=== PATIENT | female | born 1975 | race Caucasian/White ===

== ENCOUNTER 2019-03-15 15:37 | Emergency (ER) | payer OTHER ==
[~2019-03-15] VITALS: Ht 160 cm; Wt 44.5 kg
[~2019-03-15 15:37] MED LIST: PERCOCET 5/3251 TAB PO; POLY119PG PO; PRENATAL + DHA1 EAC1 PO
== END 2019-03-15 19:13 | disposition home or self-care (01) ==
LOC: ER 15:37
DX: K29.60 Other gastritis without bleeding (principal); R10.2 Pelvic and perineal pain